=== PATIENT | male | born 1980 | race Caucasian/White ===

== ENCOUNTER 2018-01-15 11:59 | Emergency (ER) | payer BC, OTHER ==
[2018-01-15] MEDS ORDERED: Lidocaine 1%* 5 ML VIAL INJ ONE (12:16)
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
[2018-01-15 13:16] VITALS: BP 145/99
== END 2018-01-15 13:14 | disposition home or self-care (01) ==
LOC: ED 11:59
DX: S01.511A Laceration without foreign body of lip, initial encounter (principal); Y92.9 Unspecified place or not applicable; Y04.2XXA Assault by strike against or bumped into by another person, initial encounter; J45.909 Unspecified asthma, uncomplicated; S09.90XA Unspecified injury of head, initial encounter
CPT/HCPCS: 12011; 99281